=== PATIENT | male | born 1955 | race Caucasian/White ===

== ENCOUNTER 2018-02-17 16:28 | Emergency (ER) | payer OTHER, SELFPAY ==
[~2018-02-17] VITALS: Ht 182.9 cm; Wt 113.4 kg
[~2018-02-17 16:28] MED LIST: AMLO5 PO; CYCL10 PO; FENOPROFEN PO; MECL12.5 PO; METF500 PO; NORT25 PO; OMEP20ER PO; TAMS.4ER PO; TRAM50 PO; VANCO 1.751.75 GM/25 IV; Zestril PO
[2018-02-17] MEDS ORDERED: Qualaquin324 MG PO (20:17)
[2018-02-17] MEDS ORDERED: ASPI81CH PO (20:17)
[2018-02-17 21:33] LABS: BASOPHILS ABSOLUTE AUTO 0.06 K/mm3 (0.00-0.23); BASOPHILS PERCENT AUTO 1 % (0-2); EOSINOPHILS ABSOLUTE AUTO 0.17 K/mm3 (0.00-0.68); EOSINOPHILS PERCENT AUTO 2 % (0-6); Hematocrit 39.1 % (37.0-53.0); Hemoglobin 13.2 g/dL (13.5-17.5); IMMATURE GRAN ABSOLUTE AUTO 0.05 K/mm3 (0.00-0.10); IMMATURE GRAN PERCENT AUTO 1 % (0-1); LYMPHOCYTES ABSOLUTE AUTO 2.07 K/mm3 (0.84-5.20); LYMPHOCYTES PERCENT AUTO 23 % (21-46); MONOCYTES ABSOLUTE AUTO 1.18 K/mm3 (0.16-1.47); MONOCYTES PERCENT AUTO 13 % (4-13); Mean Corpuscular HGB 29.1 pg (26.0-34.0); Mean Corpuscular HGB Conc 33.8 g/dL (31.5-36.5); Mean Corpuscular Volume 86 fL (80-100); Mean Platelet Volume 9.5 fL (9.1-12.4); NEUTROPHILS ABSOLUTE AUTO 5.66 K/mm3 (1.96-9.15); NEUTROPHILS PERCENT AUTO 62 % (41-73); Platelet Count 285 K/mm3 (150-400); RDW Coefficient Variation 13.2 % (11.7-14.2); RDW Standard Deviation 41.6 fL (35.1-46.3); Red Blood Cell Count 4.53 M/mm3 (4.30-5.90); White Blood Cell Count 9.19 K/mm3 (4.00-11.30)
[2018-02-17 21:50] LABS: Anion Gap 10 mmol/L (6-16); Blood Urea Nitrogen 19 mg/dL (8-24); Bun/Creatinine Ratio 17.1 (12.0-20.0); CO2, Blood 26 mmol/L (21-32); Calcium, Blood 9.1 mg/dL (8.5-10.1); Chloride, Blood 100 mmol/L (98-108); Creatinine, Blood 1.11 mg/dL (0.60-1.20); Glomerular Filtration Rate >60 (60-); Glucose, Blood 174 mg/dL (70-99); Potassium, Blood 4.1 mmol/L (3.5-5.5); Sodium, Blood 136 mmol/L (136-145)
[2018-02-17] MEDS ORDERED: Bactrim Ds Tab1 EACH PO (22:32)
== END 2018-02-17 23:40 | disposition home or self-care (01) ==
LOC: ER 16:28
PROVIDERS: Emergency Medicine
DX: N49.2 Inflammatory disorders of scrotum (principal); Z88.5 Allergy status to narcotic agent; Z88.8 Allergy status to other drugs, medicaments and biological substances; Z88.1 Allergy status to other antibiotic agents; Z79.899 Other long term (current) drug therapy; Z79.891 Long term (current) use of opiate analgesic; Z79.84 Long term (current) use of oral hypoglycemic drugs; Z79.82 Long term (current) use of aspirin; K21.9 Gastro-esophageal reflux disease without esophagitis; E11.9 Type 2 diabetes mellitus without complications; I10 Essential (primary) hypertension; Z87.442 Personal history of urinary calculi
CPT/HCPCS: 36415; 76870; 80048; 83605; 85025; 87070; 87075; 87077; 87147; 87186; 87205; 96365; 96368; 99284; J0295; J3370; J7050

== ENCOUNTER 2018-02-18 10:08 | Day surgery (SDC) | payer OTHER, SELFPAY ==
[~2018-02-18] VITALS: Ht 182.9 cm; Wt 114.4 kg
[~2018-02-18 10:08] MED LIST changes: +ASPI81CH PO; +Bactrim Ds Tab1 EACH PO; +Qualaquin324 MG PO
== END 2018-02-18 18:44 | disposition home or self-care (01) ==
LOC: ATC 10:08
DX: L03.116 Cellulitis of left lower limb (principal); N49.2 Inflammatory disorders of scrotum; B95.62 Methicillin resistant Staphylococcus aureus infection as the cause of diseases classified elsewhere; I10 Essential (primary) hypertension
CPT/HCPCS: 96365; 96366; J3370; J7050

== ENCOUNTER 2018-02-19 00:07 | Day surgery (SDC) | payer OTHER, SELFPAY | END 2018-02-19 18:20 | disposition home or self-care (01) | LOC: ATC 00:07 | DX: L03.116 Cellulitis of left lower limb (principal); N49.2 Inflammatory disorders of scrotum | CPT/HCPCS: 96365; 96366; J3370; J7050 ==

== ENCOUNTER 2018-02-20 00:15 | Day surgery (SDC) | payer OTHER, SELFPAY ==
[2018-02-20 08:45] LABS: Creatinine, Blood 1.08 mg/dL (0.60-1.20); Vancomycin, Trough 13.4 ug/mL (5.0-10.0)
== END 2018-02-20 18:47 | disposition home or self-care (01) ==
LOC: ATC 00:15
PROVIDERS: Emergency Medicine
DX: L03.116 Cellulitis of left lower limb (principal); N49.2 Inflammatory disorders of scrotum; I10 Essential (primary) hypertension
CPT/HCPCS: 80202; 82565; 96365; 96366; J3370; J7050

== ENCOUNTER 2018-02-21 00:18 | Day surgery (SDC) | payer OTHER, SELFPAY | END 2018-02-21 22:55 | disposition home or self-care (01) | LOC: ATC 00:18 | DX: L03.116 Cellulitis of left lower limb (principal); N49.2 Inflammatory disorders of scrotum; I10 Essential (primary) hypertension | CPT/HCPCS: 96365; 96366; J3370; J7050 ==

== ENCOUNTER 2018-02-24 00:25 | Day surgery (SDC) | payer OTHER, SELFPAY | END 2018-02-24 18:21 | disposition home or self-care (01) | LOC: ATC 00:25 | DX: L03.116 Cellulitis of left lower limb (principal); N49.2 Inflammatory disorders of scrotum | CPT/HCPCS: 96365; 96366; J3370; J7050 ==

== ENCOUNTER 2018-02-26 07:04 | Day surgery (SDC) | payer OTHER, SELFPAY | END 2018-02-26 18:20 | disposition home or self-care (01) | LOC: ATC 07:04 | DX: L03.116 Cellulitis of left lower limb (principal); N49.2 Inflammatory disorders of scrotum | CPT/HCPCS: 96365; 96366; J3370; J7050 ==

== ENCOUNTER 2018-02-27 00:33 | Day surgery (SDC) | payer OTHER, SELFPAY | END 2018-02-27 18:38 | disposition home or self-care (01) | LOC: ATC 00:33 | DX: L03.116 Cellulitis of left lower limb (principal); N49.2 Inflammatory disorders of scrotum | CPT/HCPCS: 96365; 96366; J3370; J7050 ==

== ENCOUNTER 2019-02-21 11:59 | Emergency (ER) | payer SELFPAY ==
[~2019-02-21] VITALS: Ht 182.9 cm; Wt 117.9 kg
[~2019-02-21 11:59] MED LIST changes: +ALBU90OI INH; +ASPI325 PO; -ASPI81CH PO; +Cymbalta20 MG PO; -OMEP20ER PO; +OMEPRAZOLE MAGN20 MG PO
[2019-02-22] MEDS ORDERED: VANCOMYCIN1.75 GM/50 IV (09:04)
[2019-02-24] MEDS ORDERED: NAPR220 PO (07:58)
[2019-02-24] MEDS ORDERED: QUIN300 PO (07:58)
== END 2019-02-21 12:56 | disposition home or self-care (01) ==
LOC: ER 11:59
DX: Z53.29 Procedure and treatment not carried out because of patient's decision for other reasons (principal)

== ENCOUNTER 2019-02-21 12:54 | Day surgery (SDC) | payer SELFPAY ==
[2019-02-22] MEDS ORDERED: VANCOMYCIN1.75 GM/50 IV (09:04)
[2019-02-24] MEDS ORDERED: NAPR220 PO (07:58)
[2019-02-24] MEDS ORDERED: QUIN300 PO (07:58)
== END 2019-02-21 18:00 | disposition home or self-care (01) ==
LOC: ATC 12:54
DX: L03.116 Cellulitis of left lower limb (principal); E11.9 Type 2 diabetes mellitus without complications; J44.9 Chronic obstructive pulmonary disease, unspecified; K21.9 Gastro-esophageal reflux disease without esophagitis; Z87.891 Personal history of nicotine dependence; Z88.1 Allergy status to other antibiotic agents; Z88.5 Allergy status to narcotic agent; Z88.6 Allergy status to analgesic agent; Z79.899 Other long term (current) drug therapy; Z79.82 Long term (current) use of aspirin; Z86.14 Personal history of Methicillin resistant Staphylococcus aureus infection
CPT/HCPCS: 96365; 96366; J3370; J7050

== ENCOUNTER 2019-02-22 08:00 | Day surgery (SDC) | payer SELFPAY ==
[2019-02-22] MEDS ORDERED: VANCOMYCIN1.75 GM/50 IV (09:04)
[2019-02-24] MEDS ORDERED: QUIN300 PO (07:58)
[2019-02-24] MEDS ORDERED: NAPR220 PO (07:58)
== END 2019-02-22 17:29 | disposition home or self-care (01) ==
LOC: ATC 08:00
DX: L03.116 Cellulitis of left lower limb (principal); E11.9 Type 2 diabetes mellitus without complications; K21.9 Gastro-esophageal reflux disease without esophagitis; J44.9 Chronic obstructive pulmonary disease, unspecified; Z88.8 Allergy status to other drugs, medicaments and biological substances; Z88.1 Allergy status to other antibiotic agents; Z88.5 Allergy status to narcotic agent; Z79.899 Other long term (current) drug therapy; Z79.84 Long term (current) use of oral hypoglycemic drugs; Z79.82 Long term (current) use of aspirin; Z87.891 Personal history of nicotine dependence
CPT/HCPCS: 83880; 96365; 96366; J3370; J7050

== ENCOUNTER 2019-02-25 07:36 | Day surgery (SDC) | payer SELFPAY ==
[~2019-02-25 07:36] MED LIST changes: +NAPR220 PO; +QUIN300 PO; +VANCOMYCIN1.75 GM/50 IV
[2019-02-25] MEDS ORDERED: METCAR500 PO (08:23)
[2019-02-25] MEDS ORDERED: ZESTORETIC 20-121 EA (08:24)
== END 2019-02-25 22:54 | disposition home or self-care (01) ==
LOC: ATC 07:36
DX: L03.116 Cellulitis of left lower limb (principal); I10 Essential (primary) hypertension; M19.90 Unspecified osteoarthritis, unspecified site; Z88.5 Allergy status to narcotic agent
CPT/HCPCS: J3370; J7050

== ENCOUNTER 2019-02-26 00:13 | Day surgery (SDC) | payer SELFPAY ==
[~2019-02-26 00:13] MED LIST changes: +METCAR500 PO; +ZESTORETIC 20-121 EA
[2019-02-26 08:27] LABS: Creatinine, Blood 0.83 mg/dL (0.60-1.20)
== END 2019-02-26 17:57 | disposition home or self-care (01) ==
LOC: ATC 00:13
PROVIDERS: Family Medicine
DX: L03.116 Cellulitis of left lower limb (principal); I10 Essential (primary) hypertension; Z87.442 Personal history of urinary calculi; Z79.899 Other long term (current) drug therapy; Z79.82 Long term (current) use of aspirin; Z79.84 Long term (current) use of oral hypoglycemic drugs; Z88.5 Allergy status to narcotic agent; Z88.1 Allergy status to other antibiotic agents
CPT/HCPCS: 80202; 82565; 96365; 96366; J3370; J7050

== ENCOUNTER 2019-02-28 07:27 | Day surgery (SDC) | payer SELFPAY | END 2019-02-28 17:30 | disposition home or self-care (01) | LOC: ATC 07:27 | DX: L03.116 Cellulitis of left lower limb (principal); Z79.899 Other long term (current) drug therapy; Z79.82 Long term (current) use of aspirin; Z79.84 Long term (current) use of oral hypoglycemic drugs | CPT/HCPCS: 96365; 96366; J3370; J7050 ==

== ENCOUNTER 2019-03-01 07:33 | Day surgery (SDC) | payer SELFPAY ==
[2019-03-01 08:08] LABS: Creatinine, Blood 0.88 mg/dL (0.60-1.20); Glomerular Filtration Rate >60 (60-)
== END 2019-03-01 17:50 | disposition home or self-care (01) ==
LOC: ATC 07:33
PROVIDERS: Family Medicine
DX: L03.116 Cellulitis of left lower limb (principal); Z79.899 Other long term (current) drug therapy; Z79.82 Long term (current) use of aspirin; Z79.84 Long term (current) use of oral hypoglycemic drugs; Z88.5 Allergy status to narcotic agent
CPT/HCPCS: 80202; 82565; 96365; 96366; J3370; J7050

== ENCOUNTER 2019-03-02 07:56 | Day surgery (SDC) | payer SELFPAY | END 2019-03-02 22:49 | disposition home or self-care (01) | LOC: ATC 07:56 | DX: L03.116 Cellulitis of left lower limb (principal); I10 Essential (primary) hypertension; Z87.442 Personal history of urinary calculi; Z79.899 Other long term (current) drug therapy; Z79.82 Long term (current) use of aspirin; Z79.84 Long term (current) use of oral hypoglycemic drugs; Z88.5 Allergy status to narcotic agent; Z88.1 Allergy status to other antibiotic agents; Z88.8 Allergy status to other drugs, medicaments and biological substances | CPT/HCPCS: J3370; J7050 ==

== ENCOUNTER 2019-03-04 00:30 | Day surgery (SDC) | payer SELFPAY | END 2019-03-04 17:51 | disposition home or self-care (01) | LOC: ATC 00:30 | DX: L03.116 Cellulitis of left lower limb (principal); I10 Essential (primary) hypertension; Z87.442 Personal history of urinary calculi; Z79.899 Other long term (current) drug therapy; Z79.82 Long term (current) use of aspirin; Z79.84 Long term (current) use of oral hypoglycemic drugs; Z88.5 Allergy status to narcotic agent; Z88.8 Allergy status to other drugs, medicaments and biological substances | CPT/HCPCS: 96365; 96366; J3370; J7050 ==

== ENCOUNTER 2019-03-05 00:15 | Day surgery (SDC) | payer SELFPAY ==
[2019-03-05 08:35] LABS: Creatinine, Blood 0.84 mg/dL (0.60-1.20)
== END 2019-03-05 17:43 | disposition home or self-care (01) ==
LOC: ATC 00:15
PROVIDERS: Physician Assistant
DX: L03.116 Cellulitis of left lower limb (principal); I10 Essential (primary) hypertension; M19.90 Unspecified osteoarthritis, unspecified site; Z88.5 Allergy status to narcotic agent; Z88.1 Allergy status to other antibiotic agents; Z88.6 Allergy status to analgesic agent
CPT/HCPCS: 80202; 82565; 96365; 96366; J3370; J7050

== ENCOUNTER 2019-03-06 07:33 | Day surgery (SDC) | payer SELFPAY | END 2019-03-06 17:57 | disposition home or self-care (01) | LOC: ATC 07:33 | DX: L03.116 Cellulitis of left lower limb (principal); I10 Essential (primary) hypertension; Z87.442 Personal history of urinary calculi; Z79.899 Other long term (current) drug therapy; Z79.84 Long term (current) use of oral hypoglycemic drugs; Z79.82 Long term (current) use of aspirin | CPT/HCPCS: 96365; 96366; J3370; J7050 ==

== ENCOUNTER 2019-04-03 14:39 | Day surgery (SDC) | payer SELFPAY ==
[2019-04-03] MEDS ORDERED: ASCO500 PO (15:48)
[2019-04-03] MEDS ORDERED: THERA1 EACH PO (15:48)
[2019-04-03] MEDS ORDERED: Vitamin B Comple1 EA PO (15:49)
[2019-04-03] MEDS ORDERED: CHOL10002 PO (15:49)
[2019-04-03] MEDS ORDERED: TURMERIC500 M2 PO (15:50)
[2019-04-03] MEDS ORDERED: FISH OIL 1,0001 EAC1 PO (15:50)
== END 2019-04-03 23:16 | disposition home or self-care (01) ==
LOC: ATC 14:39
DX: L03.116 Cellulitis of left lower limb (principal); E11.9 Type 2 diabetes mellitus without complications; B95.62 Methicillin resistant Staphylococcus aureus infection as the cause of diseases classified elsewhere; I82.432 Acute embolism and thrombosis of left popliteal vein; I10 Essential (primary) hypertension; M19.90 Unspecified osteoarthritis, unspecified site; N50.89 Other specified disorders of the male genital organs; Z79.899 Other long term (current) drug therapy; Z79.82 Long term (current) use of aspirin; Z79.84 Long term (current) use of oral hypoglycemic drugs; Z88.5 Allergy status to narcotic agent; Z88.1 Allergy status to other antibiotic agents; Z88.8 Allergy status to other drugs, medicaments and biological substances; Z96.641 Presence of right artificial hip joint; Z85.820 Personal history of malignant melanoma of skin
CPT/HCPCS: 96365; 96366; J3370; J7050

== ENCOUNTER 2019-04-04 07:28 | Day surgery (SDC) | payer SELFPAY ==
[~2019-04-04 07:28] MED LIST changes: +ASCO500 PO; +CHOL10002 PO; +FISH OIL 1,0001 EAC1 PO; +THERA1 EACH PO; +TURMERIC500 M2 PO; +Vitamin B Comple1 EA PO
--- NOTE | 2019-04-04 17:15 | NUR ---
IV WRAPPED WITH 2X2S AND COBAN. PT TO RETURN IN AM FOR MORE ANTIBIOTICS.
== END 2019-04-04 17:15 | disposition home or self-care (01) ==
LOC: ATC 07:28
DX: L03.116 Cellulitis of left lower limb (principal); Z79.899 Other long term (current) drug therapy; Z79.82 Long term (current) use of aspirin; Z79.84 Long term (current) use of oral hypoglycemic drugs; Z88.5 Allergy status to narcotic agent; Z88.1 Allergy status to other antibiotic agents; Z88.8 Allergy status to other drugs, medicaments and biological substances
CPT/HCPCS: 96365; 96366; J3370; J7050

== ENCOUNTER 2019-04-05 07:32 | Day surgery (SDC) | payer SELFPAY ==
--- NOTE | 2019-04-05 07:40 | NUR ---
LABS DRAWN FROM [facility] WITH 23 G BUTTERFLY NEEDLE. PT TOLERATED WITHOUT DIFFICULTY.
[2019-04-05 08:08] LABS: Creatinine, Blood 0.87 mg/dL (0.60-1.20); Vancomycin, Trough 10.3 ug/mL (5.0-10.0)
== END 2019-04-05 18:02 | disposition home or self-care (01) ==
LOC: ATC 07:32
PROVIDERS: Family Medicine
DX: L03.116 Cellulitis of left lower limb (principal); I10 Essential (primary) hypertension; Z87.442 Personal history of urinary calculi; Z79.899 Other long term (current) drug therapy; Z79.82 Long term (current) use of aspirin; Z79.84 Long term (current) use of oral hypoglycemic drugs; Z88.5 Allergy status to narcotic agent; Z88.8 Allergy status to other drugs, medicaments and biological substances
CPT/HCPCS: 80202; 82565; 96365; 96366; J3370; J7050

== ENCOUNTER 2019-04-06 00:10 | Day surgery (SDC) | payer SELFPAY | END 2019-04-06 18:19 | disposition home or self-care (01) | LOC: ATC 00:10 | DX: L03.116 Cellulitis of left lower limb (principal); Z79.899 Other long term (current) drug therapy; Z79.82 Long term (current) use of aspirin; Z79.84 Long term (current) use of oral hypoglycemic drugs; Z88.5 Allergy status to narcotic agent; Z88.1 Allergy status to other antibiotic agents; Z88.8 Allergy status to other drugs, medicaments and biological substances | CPT/HCPCS: 96365; 96366; J3370; J7050 ==

== ENCOUNTER 2019-04-07 00:09 | Day surgery (SDC) | payer SELFPAY ==
[2019-04-08] MEDS ORDERED: VANCO 1.751.75 GM/50 IV (07:54)
== END 2019-04-07 17:32 | disposition home or self-care (01) ==
LOC: ATC 00:09
DX: L03.116 Cellulitis of left lower limb (principal); Z79.899 Other long term (current) drug therapy; Z79.84 Long term (current) use of oral hypoglycemic drugs; Z79.82 Long term (current) use of aspirin
CPT/HCPCS: 96365; 96366; J3370; J7050

== ENCOUNTER 2019-04-08 00:04 | Day surgery (SDC) | payer SELFPAY ==
[2019-04-08] MEDS ORDERED: VANCO 1.751.75 GM/50 IV (07:54)
[2019-04-08 08:20] LABS: Creatinine, Blood 0.87 mg/dL (0.60-1.20); Vancomycin, Trough 12.4 ug/mL (5.0-10.0)
== END 2019-04-08 17:58 | disposition home or self-care (01) ==
LOC: ATC 00:04
PROVIDERS: Technician, Other
DX: L03.116 Cellulitis of left lower limb (principal); Z79.899 Other long term (current) drug therapy; Z88.5 Allergy status to narcotic agent; Z88.1 Allergy status to other antibiotic agents; Z88.8 Allergy status to other drugs, medicaments and biological substances; Z79.84 Long term (current) use of oral hypoglycemic drugs; Z79.82 Long term (current) use of aspirin; Z86.14 Personal history of Methicillin resistant Staphylococcus aureus infection
CPT/HCPCS: 80202; 82565; 96365; 96366; J3370; J7050

== ENCOUNTER 2019-04-09 07:35 | Day surgery (SDC) | payer SELFPAY ==
[~2019-04-09 07:35] MED LIST changes: +VANCO 1.751.75 GM/50 IV
== END 2019-04-09 18:14 | disposition home or self-care (01) ==
LOC: ATC 07:35
DX: L03.116 Cellulitis of left lower limb (principal); E11.42 Type 2 diabetes mellitus with diabetic polyneuropathy; Z79.899 Other long term (current) drug therapy; Z88.0 Allergy status to penicillin; Z88.1 Allergy status to other antibiotic agents; Z88.8 Allergy status to other drugs, medicaments and biological substances; Z79.51 Long term (current) use of inhaled steroids; Z79.84 Long term (current) use of oral hypoglycemic drugs; Z86.14 Personal history of Methicillin resistant Staphylococcus aureus infection
CPT/HCPCS: 96365; 96366; J3370; J7050

== ENCOUNTER 2019-04-10 01:04 | Day surgery (SDC) | payer SELFPAY | END 2019-04-10 17:58 | disposition home or self-care (01) | LOC: ATC 01:04 | DX: L03.116 Cellulitis of left lower limb (principal); Z79.899 Other long term (current) drug therapy; Z79.84 Long term (current) use of oral hypoglycemic drugs; Z79.82 Long term (current) use of aspirin; Z88.5 Allergy status to narcotic agent; Z88.1 Allergy status to other antibiotic agents; Z88.8 Allergy status to other drugs, medicaments and biological substances | CPT/HCPCS: 96365; 96366; J3370; J7050 ==

== ENCOUNTER 2019-04-11 07:40 | Day surgery (SDC) | payer SELFPAY ==
[2019-04-11 08:39] LABS: Creatinine, Blood 0.88 mg/dL (0.60-1.20); Vancomycin, Trough 14.7 ug/mL (5.0-10.0)
== END 2019-04-11 17:00 | disposition home or self-care (01) ==
LOC: ATC 07:40
PROVIDERS: Family Medicine
DX: L03.116 Cellulitis of left lower limb (principal); Z79.899 Other long term (current) drug therapy; Z79.84 Long term (current) use of oral hypoglycemic drugs; Z79.1 Long term (current) use of non-steroidal anti-inflammatories (NSAID); Z88.5 Allergy status to narcotic agent; Z88.8 Allergy status to other drugs, medicaments and biological substances
CPT/HCPCS: 36415; 80202; 82565; 96365; 96366; J3370; J7050

== ENCOUNTER 2019-04-12 07:28 | Day surgery (SDC) | payer SELFPAY | END 2019-04-12 22:50 | disposition home or self-care (01) | LOC: ATC 07:28 | DX: L03.116 Cellulitis of left lower limb (principal); Z79.899 Other long term (current) drug therapy; Z79.84 Long term (current) use of oral hypoglycemic drugs; Z79.82 Long term (current) use of aspirin | CPT/HCPCS: 96365; J3370; J7050 ==

== ENCOUNTER 2019-04-13 00:12 | Day surgery (SDC) | payer SELFPAY | END 2019-04-13 17:56 | disposition home or self-care (01) | LOC: ATC 00:12 | DX: L03.116 Cellulitis of left lower limb (principal); E11.9 Type 2 diabetes mellitus without complications; Z79.899 Other long term (current) drug therapy; Z79.84 Long term (current) use of oral hypoglycemic drugs; Z88.8 Allergy status to other drugs, medicaments and biological substances; Z88.5 Allergy status to narcotic agent; Z88.1 Allergy status to other antibiotic agents | CPT/HCPCS: 96365; 96366; J3370; J7050 ==

== ENCOUNTER 2019-04-14 00:35 | Day surgery (SDC) | payer SELFPAY | END 2019-04-14 17:32 | disposition home or self-care (01) | LOC: ATC 00:35 | DX: L03.116 Cellulitis of left lower limb (principal); E11.9 Type 2 diabetes mellitus without complications; Z88.5 Allergy status to narcotic agent; Z88.1 Allergy status to other antibiotic agents; Z86.14 Personal history of Methicillin resistant Staphylococcus aureus infection; Z79.899 Other long term (current) drug therapy; Z79.891 Long term (current) use of opiate analgesic; Z79.82 Long term (current) use of aspirin; Z79.84 Long term (current) use of oral hypoglycemic drugs; Z88.8 Allergy status to other drugs, medicaments and biological substances | CPT/HCPCS: 96365; 96366; J3370; J7050 ==

== ENCOUNTER 2019-04-15 00:08 | Day surgery (SDC) | payer SELFPAY | END 2019-04-15 17:48 | disposition home or self-care (01) | LOC: ATC 00:08 | DX: L03.116 Cellulitis of left lower limb (principal) | CPT/HCPCS: 96365; 96366; J3370; J7050 ==

== ENCOUNTER 2019-04-16 00:18 | Day surgery (SDC) | payer SELFPAY | END 2019-04-16 18:00 | disposition home or self-care (01) | LOC: ATC 00:18 | DX: L03.116 Cellulitis of left lower limb (principal); Z88.5 Allergy status to narcotic agent; Z88.1 Allergy status to other antibiotic agents; Z79.899 Other long term (current) drug therapy; Z79.84 Long term (current) use of oral hypoglycemic drugs; Z79.1 Long term (current) use of non-steroidal anti-inflammatories (NSAID); Z79.82 Long term (current) use of aspirin | CPT/HCPCS: 96365; 96366; J3370; J7050 ==

== ENCOUNTER 2019-04-17 00:37 | Day surgery (SDC) | payer SELFPAY ==
[~2019-04-17] VITALS: Ht 182.9 cm; Wt 122.3 kg
== END 2019-04-17 09:23 | disposition home or self-care (01) ==
LOC: ATC 00:37
DX: L03.116 Cellulitis of left lower limb (principal); E11.9 Type 2 diabetes mellitus without complications; Z79.899 Other long term (current) drug therapy; Z88.5 Allergy status to narcotic agent; Z88.1 Allergy status to other antibiotic agents; Z88.8 Allergy status to other drugs, medicaments and biological substances; Z79.82 Long term (current) use of aspirin; Z79.84 Long term (current) use of oral hypoglycemic drugs; Z79.891 Long term (current) use of opiate analgesic
CPT/HCPCS: 96365; 96366; J3370; J7050

== ENCOUNTER 2019-05-20 15:10 | Day surgery (SDC) | payer SELFPAY ==
[2019-05-21] MEDS ORDERED: VANCO 1.751.75 GM/25 IV (11:44)
== END 2019-05-20 18:05 | disposition home or self-care (01) ==
LOC: ATC 15:10
DX: L03.116 Cellulitis of left lower limb (principal); E11.9 Type 2 diabetes mellitus without complications; I10 Essential (primary) hypertension; Z87.442 Personal history of urinary calculi; Z88.5 Allergy status to narcotic agent; Z88.1 Allergy status to other antibiotic agents; Z88.6 Allergy status to analgesic agent
CPT/HCPCS: 82565; 96365; 96366; J3370; J7050

== ENCOUNTER 2019-05-21 00:17 | Day surgery (SDC) | payer SELFPAY ==
[2019-05-21] MEDS ORDERED: VANCO 1.751.75 GM/25 IV (11:44)
== END 2019-05-21 17:43 | disposition home or self-care (01) ==
LOC: ATC 00:17
DX: L03.116 Cellulitis of left lower limb (principal); E11.9 Type 2 diabetes mellitus without complications; I10 Essential (primary) hypertension; Z87.442 Personal history of urinary calculi; Z79.899 Other long term (current) drug therapy; Z79.84 Long term (current) use of oral hypoglycemic drugs; Z79.82 Long term (current) use of aspirin; Z88.5 Allergy status to narcotic agent; Z88.1 Allergy status to other antibiotic agents; Z88.8 Allergy status to other drugs, medicaments and biological substances
CPT/HCPCS: 96365; 96366; C1751; J3370; J7050

== ENCOUNTER 2019-05-22 01:54 | Day surgery (SDC) | payer SELFPAY | END 2019-05-22 17:23 | disposition home or self-care (01) | LOC: ATC 01:54 | DX: L03.116 Cellulitis of left lower limb (principal); I10 Essential (primary) hypertension; M19.90 Unspecified osteoarthritis, unspecified site; Z85.820 Personal history of malignant melanoma of skin; Z88.1 Allergy status to other antibiotic agents; Z88.5 Allergy status to narcotic agent; Z88.6 Allergy status to analgesic agent | CPT/HCPCS: 96365; 96366; J3370; J7050 ==

== ENCOUNTER 2019-05-23 07:36 | Day surgery (SDC) | payer SELFPAY ==
[2019-05-23 08:11] LABS: Creatinine, Blood 0.77 mg/dL (0.60-1.20); Vancomycin, Trough 12.3 ug/mL (5.0-10.0)
== END 2019-05-23 17:21 | disposition home or self-care (01) ==
LOC: ATC 07:36
PROVIDERS: Family Medicine
DX: L03.116 Cellulitis of left lower limb (principal); I10 Essential (primary) hypertension; M19.90 Unspecified osteoarthritis, unspecified site; E11.9 Type 2 diabetes mellitus without complications; Z88.5 Allergy status to narcotic agent; Z88.1 Allergy status to other antibiotic agents; Z88.6 Allergy status to analgesic agent
CPT/HCPCS: 80202; 82565; 96365; 96366; J3370; J7050

== ENCOUNTER 2019-05-24 07:21 | Day surgery (SDC) | payer SELFPAY ==
[2019-05-25] MEDS ORDERED: METF500 PO (07:48)
== END 2019-05-24 17:37 | disposition home or self-care (01) ==
LOC: ATC 07:21
DX: L03.116 Cellulitis of left lower limb (principal); E11.9 Type 2 diabetes mellitus without complications; I10 Essential (primary) hypertension; Z87.442 Personal history of urinary calculi; Z79.84 Long term (current) use of oral hypoglycemic drugs; Z79.82 Long term (current) use of aspirin; Z79.899 Other long term (current) drug therapy; Z88.5 Allergy status to narcotic agent; Z88.1 Allergy status to other antibiotic agents; Z88.6 Allergy status to analgesic agent
CPT/HCPCS: 96365; 96366; J3370; J7050

== ENCOUNTER 2019-05-25 07:32 | Day surgery (SDC) | payer SELFPAY ==
[2019-05-25] MEDS ORDERED: METF500 PO (07:48)
== END 2019-05-25 17:36 | disposition home or self-care (01) ==
LOC: ATC 07:32
DX: L03.116 Cellulitis of left lower limb (principal); E11.9 Type 2 diabetes mellitus without complications; I10 Essential (primary) hypertension; Z87.442 Personal history of urinary calculi; Z79.899 Other long term (current) drug therapy; Z79.84 Long term (current) use of oral hypoglycemic drugs; Z88.5 Allergy status to narcotic agent; Z88.1 Allergy status to other antibiotic agents; Z88.8 Allergy status to other drugs, medicaments and biological substances
CPT/HCPCS: 96365; 96366; J3370; J7050

== ENCOUNTER 2019-05-26 00:12 | Day surgery (SDC) | payer SELFPAY | END 2019-05-26 17:32 | disposition home or self-care (01) | LOC: ATC 00:12 | DX: L03.116 Cellulitis of left lower limb (principal); E11.9 Type 2 diabetes mellitus without complications; I10 Essential (primary) hypertension; M19.90 Unspecified osteoarthritis, unspecified site; Z88.1 Allergy status to other antibiotic agents; Z88.5 Allergy status to narcotic agent | CPT/HCPCS: 96365; 96366; J3370; J7050 ==

== ENCOUNTER 2019-05-27 00:15 | Day surgery (SDC) | payer SELFPAY ==
[2019-05-27 08:18] LABS: Creatinine, Blood 0.82 mg/dL (0.60-1.20); Vancomycin, Trough 15.4 ug/mL (5.0-10.0)
== END 2019-05-27 17:27 | disposition home or self-care (01) ==
LOC: ATC 00:15
PROVIDERS: Family Medicine
DX: L03.116 Cellulitis of left lower limb (principal); E11.9 Type 2 diabetes mellitus without complications; I10 Essential (primary) hypertension; Z79.899 Other long term (current) drug therapy; Z79.84 Long term (current) use of oral hypoglycemic drugs; Z79.82 Long term (current) use of aspirin; Z88.5 Allergy status to narcotic agent; Z88.1 Allergy status to other antibiotic agents; Z88.8 Allergy status to other drugs, medicaments and biological substances
CPT/HCPCS: 80202; 82565; 96365; 96366; J3370; J7050

== ENCOUNTER 2019-05-28 00:24 | Day surgery (SDC) | payer SELFPAY | END 2019-05-28 17:13 | disposition home or self-care (01) | LOC: ATC 00:24 | DX: L03.116 Cellulitis of left lower limb (principal); E11.9 Type 2 diabetes mellitus without complications; Z88.5 Allergy status to narcotic agent; Z88.6 Allergy status to analgesic agent; Z88.1 Allergy status to other antibiotic agents | CPT/HCPCS: 96365; 96366; J3370; J7050 ==

== ENCOUNTER 2019-05-29 01:52 | Day surgery (SDC) | payer SELFPAY | END 2019-05-29 17:16 | disposition home or self-care (01) | LOC: ATC 01:52 | DX: L03.116 Cellulitis of left lower limb (principal); I10 Essential (primary) hypertension; M19.90 Unspecified osteoarthritis, unspecified site; E11.9 Type 2 diabetes mellitus without complications; Z88.5 Allergy status to narcotic agent; Z88.6 Allergy status to analgesic agent; Z88.1 Allergy status to other antibiotic agents | CPT/HCPCS: 96365; 96366; J3370; J7050 ==

== ENCOUNTER 2019-05-30 07:34 | Day surgery (SDC) | payer SELFPAY ==
[2019-05-30 09:01] LABS: Creatinine, Blood 0.83 mg/dL (0.60-1.20)
[2019-05-30 09:03] LABS: Vancomycin, Trough 21.2 ug/mL (5.0-10.0)
--- NOTE | 2019-05-30 11:21 | NUR ---
PTS VANCOMYACIN TROUGH IS 21.2. PER DONTRELL FROM PHARMACY WE WILL HOME PM DOSE TODAY AND RESTART IN AM.
== END 2019-05-30 10:10 | disposition home or self-care (01) ==
LOC: ATC 07:34
PROVIDERS: Family Medicine
DX: L03.116 Cellulitis of left lower limb (principal); E11.9 Type 2 diabetes mellitus without complications; Z88.5 Allergy status to narcotic agent; Z88.6 Allergy status to analgesic agent
CPT/HCPCS: 80202; 82565; 96365; 96366; J3370; J7050

== ENCOUNTER 2019-05-31 07:22 | Day surgery (SDC) | payer SELFPAY | END 2019-05-31 09:42 | disposition home or self-care (01) | LOC: ATC 07:22 | DX: L03.116 Cellulitis of left lower limb (principal); E11.9 Type 2 diabetes mellitus without complications; Z88.5 Allergy status to narcotic agent; Z88.6 Allergy status to analgesic agent; Z88.1 Allergy status to other antibiotic agents | CPT/HCPCS: 96365; 96366; J3370; J7050 ==

== ENCOUNTER 2019-06-01 07:29 | Day surgery (SDC) | payer SELFPAY | END 2019-06-01 09:43 | disposition home or self-care (01) | LOC: ATC 07:29 | DX: L03.116 Cellulitis of left lower limb (principal); E11.9 Type 2 diabetes mellitus without complications; Z88.5 Allergy status to narcotic agent; Z88.1 Allergy status to other antibiotic agents; Z88.6 Allergy status to analgesic agent | CPT/HCPCS: 96365; 96366; J3370; J7050 ==

== ENCOUNTER 2019-06-02 00:04 | Day surgery (SDC) | payer SELFPAY | END 2019-06-02 10:06 | disposition home or self-care (01) | LOC: ATC 00:04 | DX: L03.116 Cellulitis of left lower limb (principal); E11.9 Type 2 diabetes mellitus without complications; I10 Essential (primary) hypertension; Z87.442 Personal history of urinary calculi; Z79.899 Other long term (current) drug therapy; Z79.84 Long term (current) use of oral hypoglycemic drugs; Z79.82 Long term (current) use of aspirin; Z88.5 Allergy status to narcotic agent; Z88.1 Allergy status to other antibiotic agents; Z88.8 Allergy status to other drugs, medicaments and biological substances | CPT/HCPCS: 96365; 96366; J3370; J7050 ==

== ENCOUNTER 2021-05-10 09:07 | Day surgery (SDC) | payer MEDICARE ==
[~2021-05-10] VITALS: Ht 182.9 cm; Wt 113.3 kg
[~2021-05-10 09:07] MED LIST changes: +DULO30 PO; +LISINOPRIL-HCT1 EAC1 PO
--- NOTE | 2021-05-10 09:45 | NUR ---
Ambulatory in Day Surgery History, Chart, Medications and Allergies reviewed before start of procedure. Lungs clear T/O to Auscultation. Patient confirms NPO status and agrees with scheduled surgery. Patient States Post-Procedure ride home has been arranged.
--- NOTE | 2021-05-10 09:59 | NUR ---
05/10/21 0959 Jade Wynne History, Chart, Medications and Allergies reviewed before start of procedure. Patient confirms NPO status and agrees with scheduled surgery. 3-LEAD EKG REVIEWED WITH PHYSICIAN PRIOR TO START OF PROCEDURE. MONITOR INTACT WITH CONTINUOUS PULSE OXIMETRY AND INTERMITTENT BP. PATIENT DETERMINED TO BE ASA APPROPRIATE FOR PROPOFOL SEDATION PRIOR TO START OF PROCEDURE BY .
--- NOTE | 2021-05-10 10:47 | NUR ---
Discharge instructions reviewed with patient. Patient verbalizes understanding. Copy given to patient to take home. Patient States Post-Procedure ride home has been arranged.
--- NOTE | 2021-05-10 10:57 | NUR ---
ASSUMED CARE, AWAITING PT RIDE.
--- NOTE | 2021-05-10 11:15 | NUR ---
RIDE OUT TO , DC VOLUNTEER OUT VIA . Discharge instructions reviewed with patient. Patient verbalizes understanding. Copy given to patient to take home. Patient States Post-Procedure ride home has been arranged.
== END 2021-05-10 11:17 | disposition home or self-care (01) ==
LOC: ORSCMMR 09:07 → ORD 10:00 → ORSCMMR 11:17
PROVIDERS: Internal Medicine Gastroenterology
PROC: 0DBN8ZX Excision of Sigmoid Colon, Via Natural or Artificial Opening Endoscopic, Diagnostic (ICD-10-PCS; principal; 2021-05-10 10:00)
DX: Z12.11 Encounter for screening for malignant neoplasm of colon (principal); K63.5 Polyp of colon; D12.5 Benign neoplasm of sigmoid colon; E11.9 Type 2 diabetes mellitus without complications; K57.30 Diverticulosis of large intestine without perforation or abscess without bleeding; I10 Essential (primary) hypertension; K21.9 Gastro-esophageal reflux disease without esophagitis; Z79.84 Long term (current) use of oral hypoglycemic drugs; Z79.899 Other long term (current) drug therapy
CPT/HCPCS: 82947; 88305; J2704; J7120

== ENCOUNTER 2023-11-03 00:53 | Emergency (ER) | payer MEDICARE ==
[~2023-11-03] VITALS: Ht 182.9 cm; Wt 121.6 kg
[2023-11-03 01:19] LABS: BASOPHILS ABSOLUTE AUTO 0.06 K/mm3 (0.00-0.23); BASOPHILS PERCENT AUTO 1 % (0-2); EOSINOPHILS ABSOLUTE AUTO 0.23 K/mm3 (0.00-0.68); EOSINOPHILS PERCENT AUTO 3 % (0-6); Hematocrit 41.1 % (37.0-53.0); Hemoglobin 13.5 g/dL (13.5-17.5); IMMATURE GRAN ABSOLUTE AUTO 0.02 K/mm3 (0.00-0.10); IMMATURE GRAN PERCENT AUTO 0 % (0-1); LYMPHOCYTES PERCENT AUTO 35 % (21-46); MONOCYTES ABSOLUTE AUTO 1.16 K/mm3 (0.16-1.47); MONOCYTES PERCENT AUTO 16 % (4-13); Mean Corpuscular HGB 28.1 pg (26.0-34.0); Mean Corpuscular HGB Conc 32.8 g/dL (31.5-36.5); Mean Corpuscular Volume 85 fL (80-100); Mean Platelet Volume 9.5 fL (9.1-12.4); NEUTROPHILS ABSOLUTE AUTO 3.38 K/mm3 (1.96-9.15); NEUTROPHILS PERCENT AUTO 45 % (41-73); Platelet Count 281 K/mm3 (150-400); RDW Standard Deviation 43.3 fL (35.1-46.3); Red Blood Cell Count 4.81 M/mm3 (4.30-5.90); White Blood Cell Count 7.45 K/mm3 (4.00-11.30)
[2023-11-03 01:31] LABS: Albumin, Blood 3.8 g/dL (3.4-5.0); Albumin/Globulin Ratio 1.2 (0.8-1.8); Bilirubin, Total 0.4 mg/dL (0.1-1.0); Bun/Creatinine Ratio 17.2 (12.0-20.0); Calcium, Blood 9.1 mg/dL (8.5-10.1); Creatinine, Blood 0.87 mg/dL (0.60-1.20); Globulin, Blood 3.3 g/dL (2.2-4.0); Total Protein, Blood 7.1 g/dL (6.4-8.2)
[2023-11-03 03:45] VITALS: BP 147/91
== END 2023-11-03 04:04 | disposition home or self-care (01) ==
LOC: ER 00:53
PROVIDERS: Emergency Medicine
DX: I16.0 Hypertensive urgency (principal); J44.9 Chronic obstructive pulmonary disease, unspecified; E11.9 Type 2 diabetes mellitus without complications; K21.9 Gastro-esophageal reflux disease without esophagitis; N40.0 Benign prostatic hyperplasia without lower urinary tract symptoms; Z79.82 Long term (current) use of aspirin; Z79.84 Long term (current) use of oral hypoglycemic drugs; Z79.899 Other long term (current) drug therapy; Z88.1 Allergy status to other antibiotic agents; Z88.5 Allergy status to narcotic agent; Z88.6 Allergy status to analgesic agent
CPT/HCPCS: 71045; 80053; 83880; 84484; 85025; 93005; 93010; 99284-25

== ENCOUNTER → 2023-11-18 | Outpatient (CLI) | payer MEDICARE | END | disposition home or self-care (01) | LOC: LAB EV 16:44 → LAB SHORT 16:44 | DX: L97.509 Non-pressure chronic ulcer of other part of unspecified foot with unspecified severity (principal) | CPT/HCPCS: 87070; 87075; 87205 ==

== ENCOUNTER 2024-03-05 20:58 | Emergency (ER) | payer MEDICARE ==
[~2024-03-05] VITALS: Ht 182.9 cm; Wt 117.9 kg
[2024-03-05 21:10] VITALS: BP 171/107
[2024-03-05] MEDS ORDERED: Amoxicillin/Clavulanate K 875 MG Tab PO ONE (21:45)
[2024-03-05] MEDS ORDERED: Tetanus and Diphtheria Toxoid 0.5 ML INJ IM ONE (21:45)
[2024-03-05] MEDS ORDERED: AMOCLA875 PO (23:01)
== END 2024-03-05 23:09 | disposition home or self-care (01) ==
LOC: ER 20:58
DX: S61.213A Laceration without foreign body of left middle finger without damage to nail, initial encounter (principal); S61.215A Laceration without foreign body of left ring finger without damage to nail, initial encounter; W31.2XXA Contact with powered woodworking and forming machines, initial encounter; Z88.5 Allergy status to narcotic agent; Z88.1 Allergy status to other antibiotic agents; Z79.899 Other long term (current) drug therapy; Z79.82 Long term (current) use of aspirin; Z79.84 Long term (current) use of oral hypoglycemic drugs; E11.9 Type 2 diabetes mellitus without complications; I10 Essential (primary) hypertension
CPT/HCPCS: 64450; 73130; 78452; 90471; 90714; 93017; 99283-25; A9270; A9500; J2785

== ENCOUNTER → 2024-04-17 | Outpatient (CLI) | payer MEDICARE ==
[~2024-04-17] MED LIST changes: +AMOCLA875 PO
== END | disposition home or self-care (01) ==
LOC: LAB 12:15 → LAB SHORT 12:15
DX: M54.50 Low back pain, unspecified (principal); R30.0 Dysuria
CPT/HCPCS: 87077; 87086; 87186

== ENCOUNTER 2024-05-07 07:07 | Day surgery (SDC) | payer MEDICARE ==
[2024-05-07] VITALS (11 sets, daily range): BP systolic 146–167; BP diastolic 71–111
[~2024-05-07] VITALS: Ht 182.9 cm; Wt 117.9 kg
[~2024-05-07 07:07] MED LIST changes: +ALGAL OMEGA-3200 MG PO; +BASAGLAR K100 UNIT/1 SC; -CHOL10002 PO; +Cleocin HCl150 MG PO; +Crestor40 MG PO; +FISH OIL PO; +LISI20 PO; +MECL25 PO; +POTASSIUM PO; +VITAMIN D325 MC3 PO; +ZINC PO
[2024-05-07 08:27] LABS: BASOPHILS ABSOLUTE AUTO 0.05 K/mm3 (0.00-0.23); BASOPHILS PERCENT AUTO 1 % (0-2); EOSINOPHILS PERCENT AUTO 2 % (0-6); Hematocrit 40.9 % (37.0-53.0); Hemoglobin 13.5 g/dL (13.5-17.5); IMMATURE GRAN ABSOLUTE AUTO 0.01 K/mm3 (0.00-0.10); IMMATURE GRAN PERCENT AUTO 0 % (0-1); LYMPHOCYTES ABSOLUTE AUTO 1.45 K/mm3 (0.84-5.20); LYMPHOCYTES PERCENT AUTO 23 % (21-46); MONOCYTES ABSOLUTE AUTO 0.91 K/mm3 (0.16-1.47); MONOCYTES PERCENT AUTO 15 % (4-13); Mean Corpuscular HGB 28.1 pg (26.0-34.0); Mean Corpuscular Volume 85 fL (80-100); Mean Platelet Volume 9.6 fL (9.1-12.4); NEUTROPHILS ABSOLUTE AUTO 3.67 K/mm3 (1.96-9.15); NEUTROPHILS PERCENT AUTO 59 % (41-73); Platelet Count 262 K/mm3 (150-400); RDW Coefficient Variation 13.2 % (11.7-14.2); RDW Standard Deviation 40.4 fL (35.1-46.3); Red Blood Cell Count 4.81 M/mm3 (4.30-5.90); White Blood Cell Count 6.19 K/mm3 (4.00-11.30)
[2024-05-07 08:34] LABS: International Normalized Ratio 0.97; Prothrombin Time Results 10.4 Sec (9.7-11.5)
[2024-05-07 08:42] LABS: Albumin, Blood 3.9 g/dL (3.4-5.0); Albumin/Globulin Ratio 1.1 (0.8-1.8); Bilirubin, Total 0.5 mg/dL (0.1-1.0); Bun/Creatinine Ratio 25.9 (12.0-20.0); Creatinine, Blood 0.89 mg/dL (0.60-1.20); Globulin, Blood 3.4 g/dL (2.2-4.0); Total Protein, Blood 7.3 g/dL (6.4-8.2)
[2024-05-07] MEDS ORDERED: NS 1,000 ML IV ONE ×2 (08:51→09:36)
[2024-05-07] MEDS ORDERED: Verapamil HCL 2.5 MG/ML 2ML Injection ONE (08:51)
[2024-05-07] MEDS ORDERED: Heparin Sodium 1000 Units/ML 10ML MDV ONE ×2 (08:51→09:36)
[2024-05-07] MEDS ORDERED: NS 250 ML IV ONE (08:51)
[2024-05-07] MEDS ORDERED: Midazolam HCl 1MG / ML 2ML Vial ONE (09:35)
[2024-05-07] MEDS ORDERED: FentaNYL Citrate 50 MCG/ML 2 ML Injection ONE (09:35)
--- NOTE | 2024-05-07 10:34 | NUR ---
PT BACK TO RECOVERY FROM LAB. PT A&O. PT SITTING UP IN CHAIR. AT BEDSIDE. WRIST SITE SOFT AND NON-TENDER PER PT. NO BLEEDING NOTED. PT GIVEN BREAKFAST SANDWICH AND COFFEE. CALL LIGHT W/IN REACH.
--- NOTE | 2024-05-07 11:09 | NUR ---
wrist site soft and non-tender per pt. no bleeding noted.
--- NOTE | 2024-05-07 11:10 | NUR ---
pt given sprite and water per request.
--- NOTE | 2024-05-07 11:18 | NUR ---
2cc removed from tr band. no bleeding noted. site soft and non-tneder per pt.
--- NOTE | 2024-05-07 11:44 | NUR ---
ALL AIR REMVOED FROM R RADIAL TR BAND. SITE C/D/I SOFT/NONTENDER, NO EVIDENCE OF BLEEDING. VSS ON RA. PATIENT DENYING ANY PAIN. SPOUSE PRESENT AT BEDSIDE, CONVERSING APPROPRIATELY. TOLERATING PO INTAKE WELL.
--- NOTE | 2024-05-07 12:00 | NUR ---
wrist site soft and non-tender per pt. no bleeding noted.
--- NOTE | 2024-05-07 12:09 | NUR ---
pt ambulated to restroom w/o assistance. pt now back in recliner.
--- NOTE | 2024-05-07 12:38 | NUR ---
pt given dc instructions and verbalized understadning. iv out. pt changed. wrist site soft and non-tender per pt. no bleeding noted. cloth dot, arm board, and sling applied. pt taken to parking lot via [place]. , jesus, to drive pt home.
== END 2024-05-07 13:42 | disposition home or self-care (01) ==
LOC: MHTC 07:07
PROVIDERS: Internal Medicine Interventional Cardiology
DX: I25.118 Atherosclerotic heart disease of native coronary artery with other forms of angina pectoris (principal); I10 Essential (primary) hypertension; E78.5 Hyperlipidemia, unspecified; E11.9 Type 2 diabetes mellitus without complications; J44.9 Chronic obstructive pulmonary disease, unspecified; Z88.8 Allergy status to other drugs, medicaments and biological substances
CPT/HCPCS: 76937; 80053; 85025; 85610; 93458; 99152; C1769; C1887; C1894; J1644; J2250; J3010; J7030; J7050; Q9967

== ENCOUNTER → 2025-07-21 | Outpatient (CLI) | payer MEDICARE ==
[2025-07-23 11:48] LABS: Stool Occult Blood Guaiac 1 Neg (Neg)
[2025-07-23 11:49] LABS: Stool Occult Blood Guaiac 2 Neg (Neg)
== END ==
LOC: LAB 08:50 → LAB SHORT 08:50 → LAB FUT 07-20 11:40
PROVIDERS: Nurse Practitioner
DX: D50.9 Iron deficiency anemia, unspecified (principal)
CPT/HCPCS: 82270